=== PATIENT | male | born 1965 | race Caucasian/White ===

== ENCOUNTER 2023-05-13 08:57 | Day surgery (SDC) | payer OTHER ==
[~2023-05-13] VITALS: Ht 180.3 cm; Wt 129.3 kg
[2023-05-13] MEDS ORDERED: LIDOCAINE 1% 500 MG/50 ML VIAL ONE (11:09)
== END 2023-05-13 12:30 | disposition home or self-care (01) ==
LOC: MDS 08:57 → MMU 10:17 → MDS 12:30
PROVIDERS: ATTEND Internal Medicine Gastroenterology
DX: K76.0 Fatty (change of) liver, not elsewhere classified (principal)
CPT/HCPCS: 47000; 76942; J2001; Q0092